=== PATIENT | female | born 1965 | race Caucasian/White ===

== ENCOUNTER → 2020-05-12 11:23 | Outpatient (CLI) | payer OTHER, SELFPAY ==
--- NOTE | ~2020-05-12 | MM_ITS ---
EXAMINATION: MM screening [facility] BI w an HISTORY: Screening mammogram TECHNIQUE: Craniocaudal and mediolateral oblique 3-D tomosynthesis images were obtained and synthetic 2-D images were generated. CAD analysis was submitted and interpreted. COMPARISON: 02/02/2019, 10/30/2017, 10/09/2016 BREAST PARENCHYMAL COMPOSITION: The breasts are heterogeneously dense, which may obscure small masses . FINDINGS: There is no evidence of suspicious mass, calcification, or architectural distortion to sugg est malignancy in either breast. There has been no suspicious interval change. IMPRESSION: 1. No mammographic evidence of malignancy. 2. Recommend routine screening mammography in one year. BI-RADS Category 1: Negative Reviewed, dictated and finalized at location A. RVISOR GEAR REPAIR
== END ==
PROVIDERS: PCP Internal Medicine; Visit Provider Clinical Nurse Specialist
DX: Z12.31 Encounter for screening mammogram for malignant neoplasm of breast (principal)
CPT/HCPCS: 77063; 77067

== ENCOUNTER → 2021-03-14 12:14 | Outpatient (CLI) | payer OTHER, SELFPAY ==
--- NOTE | ~2021-03-14 | MR_ITS ---
EXAMINATION: MR abdomen wo/w con DATE: 03/14/2021 13:19 INDICATION: Liver mass. TECHNIQUE: Magnetic resonance imaging (MRI) of the abdomen was performed without and with 12 mL Multi Jailyn intravenous contrast. Sequences included coronal T2-weighted FS FSE, coronal and axial FS FIEST A, axial T2-weighted FSE, coronal LAVA-flex, axial STIR FSE, axial DWI, axial dual-echo T1-weighted F SPGR, and axial LAVA. Postcontrast sequences included coronal LAVA-flex and a time course of axial LA VA. COMPARISON: Abdomen MRI 12/05/2017 FINDINGS: There is a lens-shaped 5.9 x 2.4 x 7.1 cm mass abutting the right anterolateral margin of the liver t hat is likely outside of the liver. The mass demonstrates increased T2-weighted signal intensity, dec reased T1-weighted signal intensity, and contrast enhancement. The mass measured 5.2 x 2.0 x 6.2 cm o n 12/05/17. The gallbladder, spleen, pancreas, adrenal glands, and kidneys are normal. There are no dil ated loops of bowel. There is a chronic 1.3 cm subcutaneous mass in left anterolateral abdomen, likel y a sebaceous cyst. IMPRESSION: 1. 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 Consider ultrasound-guided core needle biopsy. Reviewed, dictated and finalized at location A. CTOR OF REVENUE IMPRESSION: 1. 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 Consider ultrasound-guided core needle biops y.
[2021-03-14 14:12] LABS: Estimated Glomerular Filt Rate > 60
== END ==
PROVIDERS: PCP Internal Medicine; Visit Provider Internal Medicine Gastroenterology
DX: K76.9 Liver disease, unspecified (principal)
CPT/HCPCS: 74183; A9577

== ENCOUNTER → 2021-07-03 12:01 | Outpatient (CLI) | payer OTHER, SELFPAY ==
--- NOTE | ~2021-07-03 | DEXA_ITS ---
Bone Density Report Name: PATIENCE BLEDSOE Age: 55 Sex: Female Ethnicity: White Date of : 1965 Indication: osteopenia; hysterectomy; postmenopausal Referring Provider: MARGAUX WARD Study: Bone densitometry was performed. Exam Date: July 03, 2021 Accession number: [id number] Bone Density: Region BMD T-score Z-score Classification AP Spine (L1-L4) 0.949 -0.9 0.2 Normal Femoral Neck (Left) 0.559 -2.6 -1.5 Osteoporosis Total Hip (Left) 0.752 -1.6 -0.8 Osteopenia Femoral Neck (Right) 0.553 -2.7 -1.6 Osteoporosis Total Hip (Right) 0.745 -1.6 -0.9 Osteopenia Total Hip Mean 0.749 -1.6 -0.9 Osteopenia World Health Organization criteria for BMD impression classify patients as: Normal (T-score at or above -1.0), Osteopenia (T-score between -1.0 and -2.5), or Osteoporosis (T-score at or below -2.5). 10-year Fracture Risk: FRAX not reported because: Some T-score for Spine Total or Hip Total or Femoral Neck at or below -2.5 Previous Exams: Region Exam Age BMD T-score BMD Change BMD Change Date g/cm2 vs Baseline vs Previous AP Spine(L1-L4) 07/03/2021 55 0.949 -0.9 -0.112* -0.043* 02/02/2019 53 0.992 -0.5 -0.069* -0.069* 10/09/2016 51 1.061 0.1 Total Hip(Left) 07/03/2021 55 0.752 -1.6 -0.035* -0.022 02/02/2019 53 0.774 -1.4 -0.013 -0.013 10/09/2016 51 0.787 -1.3 Total Hip(Right) 07/03/2021 55 0.745 -1.6 -0.029* -0.019 02/02/2019 53 0.765 -1.5 -0.010 -0.010 10/09/2016 51 0.774 -1.4 *Denotes significance at 95% confidence level, LSC for AP Spine = 0.022 g/cm2, LSC for Total Hip = 0.027 g/cm2 Clinical Information Provided by Patient: Has used the following medications: Vitamin D Has the following medical conditions: Hysterectomy Patient maximum height was 65.5 Menopause Age: 44 Drinks caffeinated beverages Onset of menses at age 12 Number of children 0 Impression: The patient has osteoporosis, based on the Right Femoral Neck T-score. The BMD for the AP Spine(L1-L4) decreased, changing by -0.043 since the last DXA exam. Discussion: INCREASED RISK OF FRACTURE. BONE DENSITY IS UNDESIRABLY LOW AT ONE OR MORE SKELETAL SITES, CONSISTENT WITH POSTMENOPAUSAL OSTEOPOROSIS. This patient's lowest T-score meets the World Health Organization's (WHO) criteria for osteoporosis at one or more sites (T-score -2.5 or below).
--- NOTE | ~2021-07-03 | MM_ITS ---
EXAMINATION: MM screening [facility] BI w an HISTORY: Screening mammogram TECHNIQUE: Craniocaudal and mediolateral oblique 3-D tomosynthesis images were obtained and synthetic 2-D images were generated. CAD analysis was submitted and interpreted. COMPARISON: 05/12/2020, 02/02/2019, 10/30/2017 BREAST PARENCHYMAL COMPOSITION: The breasts are heterogeneously dense, which may obscure small masses . FINDINGS: There is no evidence of suspicious mass, calcification, or architectural distortion to sugg est malignancy in either breast. There has been no suspicious interval change. IMPRESSION: 1. No mammographic evidence of malignancy. 2. Recommend routine screening mammography in one year. BI-RADS Category 1: Negative Reviewed, dictated and finalized at location A. K BAR ATTENDANT
== END ==
PROVIDERS: PCP Internal Medicine; Visit Provider Obstetrics & Gynecology
DX: Z12.31 Encounter for screening mammogram for malignant neoplasm of breast (principal); Z78.0 Asymptomatic menopausal state; M81.0 Age-related osteoporosis without current pathological fracture; M85.852 Other specified disorders of bone density and structure, left thigh; M85.851 Other specified disorders of bone density and structure, right thigh
CPT/HCPCS: 77063; 77067; 77080

== ENCOUNTER → 2022-06-26 08:57 | Outpatient (CLI) | payer OTHER, SELFPAY ==
--- NOTE | ~2022-06-26 | XR_ITS ---
Left Knee Technique: AP, lateral, and sunrise views were obtained. Clinical History: Pain Findings: No fracture or dislocation is seen. Osseous alignment is anatomic. Joint spaces are preserv ed without degenerative or erosive change. Soft tissues are unremarkable. No joint effusion is seen. Impression: Unremarkable left knee radiographs. Reviewed, dictated and finalized at location . ETING SPECIALIST Impression: Unremarkable left knee radiographs.
== END ==
PROVIDERS: PCP Internal Medicine; Visit Provider Internal Medicine
DX: M25.562 Pain in left knee (principal)
CPT/HCPCS: 73564

== ENCOUNTER → 2022-08-01 13:13 | Outpatient (CLI) | payer OTHER, SELFPAY ==
--- NOTE | ~2022-08-01 | MM_ITS ---
EXAMINATION: MM screening [facility] BI w an HISTORY: Screening TECHNIQUE: Craniocaudal and mediolateral oblique 3-D tomosynthesis images were obtained and synthetic 2-D images were generated. CAD analysis was submitted and interpreted. COMPARISON: Comparison to multiple prior studies sequentially, with oldest reviewed study dated 08/02. BREAST PARENCHYMAL COMPOSITION: There are scattered areas of fibroglandular density. FINDINGS: There is no evidence of suspicious mass, calcification, or architectural distortion to sugg est malignancy in either breast. There has been no suspicious interval change. IMPRESSION: 1. No mammographic evidence of malignancy. 2. Recommend routine screening mammography in one year. BI-RADS Category 1: Negative Reviewed, dictated and finalized at location A.
== END ==
PROVIDERS: PCP Internal Medicine; Visit Provider Obstetrics & Gynecology
DX: Z12.31 Encounter for screening mammogram for malignant neoplasm of breast (principal)
CPT/HCPCS: 77063; 77067

== ENCOUNTER 2022-08-15 12:30 | Outpatient (RCR) | payer OTHER, SELFPAY ==
--- NOTE | 2022-07-11 13:25 | PTOPEVAL1 ---
Assessment and note entered by Yovany Woods, PT Evaluation Information Assessment Status Evaluation Diagnosis Pain in Left Knee Onset late last year Subjective Information Patient reports late last year she got into bed knees first and since then she has had a deep buring in her L knee. There is no rhyme or reason why her pain increases or diminishes. She is still working out with a personalized living manager. She reports some days it will hurt with walking or doing her dishes, but the next day can do the same amount and not have any pain. Has not felt any numbness/tingling, or weakness in the knee. Reported Pain Level Pain Score 3: Self Report Assessment PT Clinical Summary Shena is a 56 year old female coming into the clinic with L knee pain. It appears to be the after effects of quads strain. Patient has tightness in the L quads and muscle weakness. Physical therapy will work on decreasing those deficits while also trying to keep pain under control. Plan of Care Interventions Electrical Stimulation,Gait Training,Hot Pack/Cold Pack,Manual Therapy,Neuro Re-education,Patient/ Caregiver Education,Therapeutic Activities, Therapeutic Exercise,Ultrasound Other Interventions taping PT Services Indicated Yes Treatment Frequency and 1x/wk for 2 weeks Duration These treatments will address the objective and functional deficits as defined above. The patient will be advanced safely and appropriately in order for the patient to progress towards his/her prior level of function. Additional exercises will be introduced and as well as a comprehensive home exercise program upon discharge, if needed, ?to ensure carryover of functional gains achieved in the clinic. This treatment plan has been reviewed and agreement upon by the patient.
--- NOTE | 2022-08-15 12:50 | PTOPDC ---
Assessment and note entered by Yovany Woods, PT Evaluation Information Assessment Status Discharge Diagnosis L knee pain Onset late last year Subjective Information Patient reports she is doing much better, has very slight burning when working out, but nothing compared to what it was. Patient is going to have a procedure on her liver in the next few weeks and will not be working out for 2 months or so. Reported Pain Level Pain Score 0: Self Report Assessment PT Clinical Summary Shena is a 56 year old female coming into the clinic with a diagnosis of L knee pain. She was evaluated on 07/11/22 and attended 5 sessions. Patient has met her pain, strength, and flexibility goals. Will be discharged from physical therapy to concentrate on her upcoming medical procedure with instructions to slowly progress at the gym when medically able to and if still having issues then ask for a new order for physical therapy. Plan of Care PT Services Indicated No
== END 2022-08-15 14:26 | disposition home or self-care (01) ==
LOC: ANHPT 12:30
PROVIDERS: PCP Internal Medicine; Visit Provider Internal Medicine
DX: M25.562 Pain in left knee (principal)
CPT/HCPCS: 97110; 97112; 97161; 97530

== ENCOUNTER → 2023-03-11 11:19 | Outpatient (CLI) | payer OTHER, SELFPAY ==
--- NOTE | ~2023-03-11 | XR_ITS ---
AP and lateral views of the left tibia/fibula Clinical History: Other specified disorder of bone Findings: No acute fracture or dislocation is seen. Osseous alignment is anatomic. Joint spaces are p reserved without significant erosive or degenerative change. Soft tissues are unremarkable. Impression: Unremarkable left tib-fib radiographs. Reviewed, dictated and finalized at location . ITY AND RELIABILITY ENGINEER Impression: Unremarkable left tib-fib radiographs.
== END ==
PROVIDERS: PCP Internal Medicine; Visit Provider Internal Medicine
DX: M89.8X6 Other specified disorders of bone, lower leg (principal)
CPT/HCPCS: 73590

== ENCOUNTER → 2023-03-14 12:45 | Outpatient (CLI) | payer OTHER, SELFPAY ==
--- NOTE | ~2023-03-14 | US_ITS ---
EXAMINATION: US soft tissue LE LT DATE: 03/14/2023 12:57 INDICATION: Left lower leg lump. TECHNIQUE: Multiple grayscale and Doppler ultrasound images of the left lower limb were obtained. COMPARISON: Left tibia and fibula radiographs 03/11/2023 FINDINGS: Anterior to the distal tibia, there is a 3.1 x 0.4 x 2.2 cm subcutaneous hypoechoic mass. IMPRESSION: 1. Subcutaneous mass anterior to the distal tibia which may be inflammation or contusion. Reviewed, dictated and finalized at location E. F PACKING MACHINE OPERATOR
== END ==
PROVIDERS: PCP Internal Medicine; Visit Provider Internal Medicine
DX: R22.42 Localized swelling, mass and lump, left lower limb (principal)
CPT/HCPCS: 76882

== ENCOUNTER → 2023-03-20 12:51 | Outpatient (CLI) | payer OTHER, SELFPAY ==
--- NOTE | ~2023-03-20 | MR_ITS ---
MRI of the left lower extremity CLINICAL HISTORY: Mass, swelling TECHNIQUE: Axial T1-weighted and STIR images, coronal T1-weighted and STIR, and sagittal T1-weighted and STIR images were performed. FINDINGS: Bone marrow signals are unremarkable. No bone marrow edema, fracture, or abnormal T1 marrow signal. No periosteal reaction seen. Visualized musculature demonstrates normal signal intensity. Visualized tendons are intact. There is focal subcutaneous soft tissue edema anterior to the mid tibial shaft, nonspecific. This is at the location of the marker. No fluid collection evident. IMPRESSION: Focal nonspecific soft tissue edema in the subcutaneous soft tissues anterior to the mid tibial shaft , at the location the marker. Appearance is nonspecific. Focal inflammatory process is a consideratio n. Correlate with physical exam. Reviewed, dictated and finalized at location M. APPER IMPRESSION: Focal nonspecific soft tissue edema in the subcutaneous soft tissues anterior t o the mid tibial shaft, at the location the marker. Appearance is nonspecific. Focal inflammatory process is a consideration. Correlate with physical exam.
== END ==
PROVIDERS: PCP Internal Medicine; Visit Provider Internal Medicine
DX: R60.0 Localized edema (principal)
CPT/HCPCS: 73718

== ENCOUNTER 2023-09-18 16:12 | Outpatient (CLI) | payer OTHER, SELFPAY ==
--- NOTE | ~2023-09-18 | MM_ITS ---
EXAMINATION: MM screening [facility] BI w mark HISTORY: Screening mammogram TECHNIQUE: Craniocaudal and mediolateral oblique 3-D tomosynthesis images were obtained and synthetic 2-D images were generated. CAD analysis was submitted and interpreted. COMPARISON: 08/01/2022, 07/03/2021 bilateral screening mammogram examinations BREAST PARENCHYMAL COMPOSITION: There are scattered areas of fibroglandular density. FINDINGS: Stable circumscribed rounded opacity is noted in the posterior mid to lower inner right terri ast (craniocaudal Mark image 32/77), unchanged since July 03, 2021. There is no evidence of suspi cious mass, calcification, or architectural distortion to suggest malignancy in either breast. There has been no suspicious interval change. IMPRESSION: 1. No mammographic evidence of malignancy. 2. Recommend routine screening mammography in one year. BI-RADS Category 2: Benign finding(s). Reviewed, dictated and finalized at location B.
== END 2023-09-18 16:13 ==
LOC: MICIMG 16:13
PROVIDERS: PCP Internal Medicine; Visit Provider Obstetrics & Gynecology
DX: Z12.31 Encounter for screening mammogram for malignant neoplasm of breast (principal)
CPT/HCPCS: 77063; 77067

== ENCOUNTER 2024-01-21 09:46 | Outpatient (CLI) | payer OTHER, SELFPAY ==
[2024-01-21 13:57] LABS: Basophils Absolute Auto 0.1 K/mm3 (0.0-0.1); Basophils Percent Auto 0.6 % (0.2-1.2); Eosinophils Absolute Auto 0.2 K/mm3 (0-0.3); Eosinophils Percent Auto 1.7 % (0-4.4); Hematocrit 40.8 % (37.0-47.0); Hemoglobin 12.7 g/dL (12.0-15.0); Immature Granulocyte Absolute 0.04 K/mm3 (0.00-0.031); Immature Granulocyte Percent A 0.4 % (0-0.5); Lymphocytes Absolute Auto 3.08 K/mm3 (0.9-3.2); Lymphocytes Percent Auto 34.5 % (18.3-44.2); Mean Corpuscular HGB Conc 31.1 g/dl (32-36); Mean Corpuscular Volume 102.8 fl (80-100); Mean Platelet Volume 10.2 fl (7.4-10.4); Monocytes Absolute Auto 0.7 K/mm3 (0.1-0.6); Monocytes Percent Auto 7.7 % (2.6-8.5); Neutrophils Absolute Auto 4.9 K/mm3 (1.3-6.7); Neutrophils Percent Auto 55.1 % (45.5-73.1); Platelet Count Result 323 k/mm3 (150-375); Red Blood Count 3.97 M/mm3 (4.2-5.4); Red Cell Distribution Width 13.1 % (11.5-14.5); White Blood Count 8.9 K/mm3 (4.5-10.0)
[2024-01-21 14:08] LABS: Hemoglobin A1C 6.3 % (<5.7)
[2024-01-21 14:28] LABS: Alanine Aminotransferase 30 U/L (6-35); Albumin Level 4.9 g/dL (3.5-5.1); Alkaline Phosphatase 77 U/L (38-126); Anion Gap 9 mmol/L (4-12); Aspartate Amino Transferase 55 U/L (14-36); Bilirubin,Total 0.5 mg/dL (0.2-1.3); Blood Urea Nitrogen 16 mg/dL (7-17); Calcium 9.1 mg/dL (8.4-10.2); Carbon Dioxide 28 mmol/L (22-30); Chloride 101 mmol/L (98-107); Cholesterol 165 mg/dL (0-200); Estimated Glomerular Filt Rate > 60; Glucose 109 mg/dL (65-110); HDL Direct 43 mg/dL; Potassium 4.6 mmol/L (3.4-5.0); Sodium 138 mmol/L (137-145); Triglycerides 204 mg/dL (<150)
[2024-01-21 14:45] LABS: LDL Cholesterol Direct 77 mg/dL
[2024-01-21 14:59] LABS: Vitamin D 25 Hydroxy 34.6 ng/mL
== END 2024-01-21 09:47 | disposition home or self-care (01) ==
LOC: ANHGOSHLAB 09:47
PROVIDERS: PCP Internal Medicine; Visit Provider Internal Medicine
DX: D13.4 Benign neoplasm of liver (principal); E78.5 Hyperlipidemia, unspecified; M81.0 Age-related osteoporosis without current pathological fracture; R23.1 Pallor; R73.9 Hyperglycemia, unspecified; E88.810 Metabolic syndrome
CPT/HCPCS: 36415; 80053; 80061; 82306; 83036; 85025

== ENCOUNTER 2024-05-12 13:20 | Outpatient (CLI) | payer OTHER, SELFPAY ==
--- NOTE | ~2024-05-12 | DEXA_ITS ---
Bone Density Report Name: PATIENCE BLEDSOE Age: 58 Sex: Female Ethnicity: White Date of : 1965 Indication: postmenopausal; screening for osteoporosis; hysterectomy; Referring Provider: MARGAUX WARD Study: Bone densitometry was performed. Exam Date: May 12, 2024 Accession number: [id number] Bone Density: Region BMD T-score Z-score Classification AP Spine(L1-L4) 0.944 -0.9 0.4 Normal Femoral Neck (Left) 0.551 -2.7 -1.5 Osteoporosis Total Hip (Left) 0.837 -0.9 0.0 Normal Femoral Neck (Right) 0.561 -2.6 -1.4 Osteoporosis Total Hip (Right) 0.837 -0.9 0.0 Normal Total Hip Mean 0.837 -0.9 0.0 Normal World Health Organization criteria for BMD impression classify patients as: Normal (T-score at or above -1.0), Osteopenia (T-score between -1.0 and -2.5), or Osteoporosis (T-score at or below -2.5). 10-year Fracture Risk: FRAX not reported because: Some T-score for Spine Total or Hip Total or Femoral Neck at or below -2.5 Clinical Information Provided by Patient: Has used the following medications: Vitamin D Has the following medical conditions: Hysterectomy Patient maximum height was 65.5 Drinks caffeinated beverages Onset of menses at age 13 Number of children 0 Impression: The patient has osteoporosis, based on the Left Femoral Neck T-score. Discussion: INCREASED RISK OF FRACTURE. BONE DENSITY IS UNDESIRABLY LOW AT ONE OR MORE SKELETAL SITES, CONSISTENT WITH POSTMENOPAUSAL OSTEOPOROSIS. This patient's lowest T-score meets the World Health Organization's (WHO) criteria for osteoporosis at one or more sites (T-score -2.5 or below). In untreated patients, the risk of osteoporotic fracture increases approximately two-fold for each 1.0 SD decrease in T-score. Low bone density is not the only risk factor for fracture; also consider factors such as patient's age, frailty or poor health, risk of falling, risk of injury, previous osteoporotic fracture, family history of osteoporosis, cigarette smoking, low body weight, etc. Not everyone with low bone mineral density has osteoporosis; osteomalacia and other metabolic bone disorders should also be considered. Patients who have osteoporosis should be evaluated for specific diseases and conditions (secondary causes) that may cause or contribute to bone loss. The [place] [employer] Endocrinologists (AACE) and National Osteoporosis Foundation (NOF) recommend pharmacologic intervention for all postmenopausal women whose T-score is in this range. The patient should follow a healthful lifestyle (good nutrition with adequate calcium and vitamin D, and appropriate weight-bearing exercise). Follow-Up: Consider a repeat BMD and Vertebral Fracture Assessment (VFA) exam in 2 years or sooner if medically necessary, to reassess this patient's status. Reported by: TANNA on 05/12/2024 2:08:00 PM. Reviewed, dictated and finalized at location A. WALTER
== END 2024-05-12 13:21 | disposition home or self-care (01) ==
PROVIDERS: PCP Internal Medicine; Visit Provider Obstetrics & Gynecology
DX: M81.0 Age-related osteoporosis without current pathological fracture (principal); Z78.0 Asymptomatic menopausal state
CPT/HCPCS: 77080

== ENCOUNTER 2024-09-18 10:13 | Outpatient (CLI) | payer OTHER, SELFPAY ==
--- NOTE | ~2024-09-18 | MM_ITS ---
EXAMINATION: MM screening [facility] BI w an HISTORY: Screening TECHNIQUE: Craniocaudal and mediolateral oblique 3-D tomosynthesis images were obtained and synthetic 2-D images were generated. CAD analysis was submitted and interpreted. COMPARISON: Comparison to multiple prior studies sequentially, with oldest reviewed study dated 10/30. BREAST PARENCHYMAL COMPOSITION: Not dense: There are scattered areas of fibroglandular density. FINDINGS: There is no evidence of suspicious mass, calcification, or architectural distortion to sugg est malignancy in either breast. There has been no suspicious interval change. IMPRESSION: 1. No mammographic evidence of malignancy. 2. Recommend routine screening mammography in one year. BI-RADS Category 1: Negative Reviewed, dictated and finalized at location A.
== END 2024-09-18 10:14 | disposition home or self-care (01) ==
PROVIDERS: PCP Obstetrics & Gynecology; Visit Provider Internal Medicine
DX: Z12.31 Encounter for screening mammogram for malignant neoplasm of breast (principal)
CPT/HCPCS: 77063; 77067

== ENCOUNTER 2025-04-08 10:56 | Outpatient (CLI) | payer OTHER, SELFPAY ==
--- NOTE | ~2025-04-08 | XR_ITS ---
EXAMINATION: XR hand BI arthritis min 3V, 04/08/2025 11:05 DIRECTOR OF SUSTAINABILITY PROGRAMS HISTORY: Effusion, unspecified joint, pain x 2 months, no inj COMPARISON: No comparisons available. Findings: No acute fracture or malalignment. No significant degenerative changes. Soft tissues unremarkable. Impression: No acute fracture or malalignment. Reviewed, dictated and finalized at location P. CTOR OF SUSTAINABILITY PROGRAMS Impression: No acute fracture or malalignment.
== END 2025-04-08 10:57 | disposition home or self-care (01) ==
LOC: GOSHIMG 10:57
DX: M25.40 Effusion, unspecified joint (principal); M79.642 Pain in left hand; M79.641 Pain in right hand
CPT/HCPCS: 73130